=== PATIENT | female | born 1950 | race Caucasian/White ===

== ENCOUNTER 2018-05-24 15:21 | Emergency (ER) | payer MEDICARE, OTHER ==
[2018-05-24 15:48] VITALS: PULSE 94
--- NOTE | 2018-05-24 16:38 | ERPHSYRPT ---
- History of Present Illness Time Seen by Provider: 05/24/18 16:29 Source: patient Exam Limitations: no limitations Patient Subjective Stated Complaint: states has left back pain x 2 days. has had left abdominal pain x 2 weeks. has hx kidney infection. denies urinary symptoms. has had low grade temp. Triage Nursing Assessment: alert and oriented.. states pain in left back area x 2 days.. has had left abdominal pain that has improved x 2 weeks. denies urinary symptoms.. nausea without vomiting. has had low grade temp today. Physician History: 68-year-old white female arrives with complaint of left the flank pain for 2 days she states that the pain is like an aching. She states she had had some abdominal pain for approximately 2 weeks prior to that. Patient is not having nausea no vomiting no urinary symptoms. She has had a fever. Past medical history includes asthma, bronchitis, GERD, hernia, hemorrhoids, breast cancer Past surgical history includes lumpectomy, tonsils, Timing/Duration: day(s) (2 days) Severity: moderate Associated Symptoms: abdominal pain (abdominal pain for 2 wee), other (left flank pain), No nausea, No vomiting, No shortness of breath, No heartburn, No diaphoresis, No cough, No chills, No chest pain, No fever, No headaches, No loss of appetite, No malaise, No rash, No syncope, No seizure, No weakness Allergies/Adverse Reactions: loracarbef [From Lorabid] Allergy (Unknown, Verified 05/24/18 15:49) Sulfa (Sulfonamide Antibiotics) Allergy (Unknown, Verified 05/24/18 15:49) Home Medications: Albuterol 2.5 mg/3 ml Neb [Proventil 2.5 mg/3 ml Neb] 2.5 mg IH QID [History] Albuterol 8 gm Mdi Hfa [Ventolin Hfa MDI] 8 gm IH Q4H PRN PRN 11/13/13 [ History] Cetirizine HCl [Zyrtec] 10 mg PO DAILY 11/13/13 [History] Multivitamin [Multi-Vitamin Daily] 1 each PO DAILY 11/13/13 [History] PANTOPRAZOLE 40 mg Tablet [Protonix 40MG Tablet] 40 mg PO DAILY 11/13/13 [ History] Zafirlukast 20 mg [Accolate 20 mg] 20 mg PO BID 11/13/13 [History] Ciprofloxacin [Cipro 500 MG] 500 mg PO WEEKLY 05/24/18 [History] Hx Influenza Vaccination/Date Given: Yes Hx Pneumococcal Vaccination/Date Given: Yes - Review of Systems Constitutional: Fever, No Chills, No Fatigue, No Lethargy, No Night Sweats, No Weakness, No Weight Loss, No Other Eyes: No Symptoms Ears, Nose, & Throat: No Symptoms Respiratory: No Cough, No Dyspnea Cardiac: No No Symptoms, No Chest Pain, No Edema, No Syncope Abdominal/Gastrointestinal: Abdominal Pain (7 abdominal pain for 2 weeks, ), No Nausea, No Vomiting, No Constipation, No Hematemesis, No Hematochezia, No Melena , No Dysphagia, No Appetite Changes Genitourinary Symptoms: Flank Pain (left flank pain), No Dysuria, No Frequency, No Hematuria, No Hesitancy, No Incontinence, No Urgency, No Urinary Retention, No Menorrhagia, No , No Vaginal Bleeding, No Vaginal Discharge Musculoskeletal: Back Pain (left flank pain), No Neck Pain Skin: No Rash Neurological: No Dizziness, No Focal Weakness, No Sensory Changes Psychological: No Symptoms Endocrine: No Symptoms All Other Systems: Reviewed and Negative - Past Medical History Pertinent Past Medical History: Yes Neurological History: No Pertinent History ENT History: No Pertinent History Cardiac History: No Pertinent History Respiratory History: Asthma, Bronchitis Endocrine Medical History: No Pertinent History Musculoskeletal History: No Pertinent History GI Medical History: GERD, Hemorrhoids, Hernia History: No Pertinent History Psycho-Social History: No Pertinent History Female Reproductive Disorders: Breast Cancer Other Medical History: osteopenia - Past Surgical History Past Surgical History: Yes Neuro Surgical History: No Pertinent History Cardiac: No Pertinent History Respiratory: No Pertinent History Gastrointestinal: No Pertinent History Genitourinary: No Pertinent History Musculoskeletal: No Pertinent History Female Surgical History: Lumpectomy, Tubal Ligation Other Surgical History: carpal tunnel bilat tonsils out, rt partial mastectomy with lymph nodes removed,port placed and removed - Social History Smoking Status: Never smoker Exposure to second hand smoke: No Drug Use: none Patient Lives Alone: No - Female History Hx Now: No - Nursing Vital Signs Nursing Vital Signs: Initial Vital Signs Temperature 99 F 05/24/18 15:40 Pulse Rate 94 H 05/24/18 15:40 Respiratory Rate 18 05/24/18 15:40 Blood Pressure 128/92 05/24/18 15:40 O2 Sat by Pulse Oximetry 100 05/24/18 15:40 Pain Scale Pain Intensity 3 - Physical Exam General Appearance: no apparent distress, alert Eye Exam: PERRL/EOMI, eyes nml inspection Ears, Nose, Throat Exam: normal ENT inspection, TMs normal, pharynx normal, moist mucous membranes Neck Exam: normal inspection, non-tender, supple, full range of motion Respiratory Exam: normal breath sounds, lungs clear, No respiratory distress Cardiovascular Exam: regular rate/rhythm, normal heart sounds, normal peripheral pulses Gastrointestinal/Abdomen Exam: soft, normal bowel sounds, No tenderness, No mass Back Exam: normal range of motion, CVA tenderness (left flank tenderness), No vertebral tenderness, No rash, No decreased range of motion, No muscle spasm, No point tenderness Extremity Exam: normal inspection, normal range of motion, pelvis stable Neurologic Exam: alert, oriented x 3, cooperative, 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, normal mood/affect, nml cerebellar function, nml station & gait, sensation nml, No motor deficits Skin Exam: normal color, warm, dry, No rash SpO2 Interpretation: normal (100%) SpO2: 100 Oxygen Delivery: Room Air Ordered Tests: Active Orders 24 hr Category Date Time Status CBC W DIFF Stat Lab 05/24/18 16:57 Completed CMP Stat Lab 05/24/18 16:57 Completed Manual Differential NC Stat Lab 05/24/18 16:57 Completed UA W/RFX UR CULTURE Stat Lab 05/24/18 16:34 Completed Lab/Rad Data: Laboratory Result Diagrams 05/24/18 16:57 05/24/18 16:57 Laboratory Results 05/24/18 05/24/18 05/24/18 Range/Units 16:57 16:57 16:34 WBC 8.0 (4.0-10.5) K/mm3 RBC 4.68 (4.1-5.4) M/mm3 Hgb 14.5 (12.0-16.0) gm/dl Hct 43.4 (35-47) % MCV 92.7 (78-100) fl MCH 31.0 (26-32) pg MCHC 33.4 (32-36) g/dl RDW 13.4 (11.5-14.0) % Plt Count 164 (150-450) K/mm3 MPV 11.3 H (6-9.5) fl Sodium 138 (137-145) mmol/L Potassium 4.0 (3.5-5.1) mmol/L Chloride 106 (98-107) mmol/L Carbon Dioxide 21 L (22-30) mmol/L Anion Gap 15.4 H (5-15) MEQ/L BUN 20 H (7-17) mg/dL Creatinine 0.70 (0.52-1.04) mg/dL Estimated GFR > 60.0 ML/MIN Glucose 115 H (74-106) mg/dL Calcium 10.2 (8.4-10.2) mg/dL Total Bilirubin 0.80 (0.2-1.3) mg/dL AST 19 (14-36) U/L ALT 22 (0-35) U/L Alkaline Phosphatase 70 (38-126) U/L Serum Total Protein 7.4 (6.3-8.2) g/dL Albumin 4.7 (3.5-5.0) g/dL Urine Color YELLOW (YELLOW) Urine Appearance SLIGHTLY CLOUDY (CLEAR) Urine pH 5.0 (5-6) Ur Specific [place] 1.030 (1.005-1.025) Urine Protein NEGATIVE (Negative) Urine Ketones NEGATIVE (NEGATIVE) Urine Blood NEGATIVE (0-5) Des/ul Urine Nitrite NEGATIVE (NEGATIVE) Urine Bilirubin NEGATIVE (NEGATIVE) Urine Urobilinogen NEGATIVE (0-1) mg/dL Ur Leukocyte Esterase TRACE (NEGATIVE) Urine WBC (Auto) 3-5 (0-5) /HPF Urine RBC (Auto) 0-2 (0-2) /HPF U Epithel Cells (Auto) RARE (FEW) /HPF Urine Bacteria (Auto) NONE (NEGATIVE) /HPF Urine Mucus (Auto) SLIGHT (NEGATIVE) /HPF Urine Culture Reflexed NO (NO) Urine Glucose NEGATIVE (NEGATIVE) mg/dL - Progress Progress: improved Progress Note: 05/24/18 17:13 68-year-old white female arrives with complaint of left flank pain for 2 days she states that she did have some left-sided abdominal pain for about 2 weeks but it had resolved. She denies any dysuria hematuria. She has no nausea or vomiting patient's urinalysis is essentially normal CBC essentially normal chemistry essentially normal. She does state that she was doing a lot of moving around and and possibly it could have pulled a muscle. Will go ahead and give patient Toradol injection 60 mg IM plan for patient to return home and take Tylenol as needed for pain and/or Advil. Patient will need to follow-up with her family doctor if symptoms persist. Return for acute distress or for severe symptoms. - Departure Time of Disposition: 17:15 Departure Disposition: Home Clinical Impression: Left flank pain Condition: Fair Critical Care Time: No Referrals: ZHEN PETER MD [Primary Care Provider] - Additional Instructions: Return home. Tylenol every 4 hours as needed for pain or Advil every 6 hours as needed for pain. Follow-up with your family doctor if symptoms no better in 48 hours or persist longer than one week. Return for acute distress or for severe symptoms.
[2018-05-24 16:53] LABS: Appearance SLIGHTLY CLOUDY (CLEAR); Bilirubin NEGATIVE (NEGATIVE); Blood NEGATIVE Ery/ul (0-5); Glucose NEGATIVE (NEGATIVE); Ketones NEGATIVE (NEGATIVE); Leukocyte Esterase TRACE (NEGATIVE); Nitrite NEGATIVE (NEGATIVE); Protein,Urine Dip NEGATIVE (Negative); Urobilinogen NEGATIVE mg/dL (0-1)
[2018-05-24 16:58] LABS: Hematocrit 43.4 % (35-47); Hemoglobin 14.5 gm/dl (12.0-16.0); Mean Cell Volume 92.7 fl (78-100); Mean Corpuscular Hgb Concent. 33.4 g/dl (32-36); Mean Platelet Volume 11.3 fl (6-9.5); Platelet Count 164 K/mm3 (150-450); Red Blood Count 4.68 M/mm3 (4.1-5.4); Red Cell Distribution Width 13.4 % (11.5-14.0)
[2018-05-24 17:10] LABS: ALBUMIN 4.7 g/dL (3.5-5.0); ALKALINE PHOSPHATASE 70 U/L (38-126); ANION GAP 15.4 MEQ/L (5-15); BLOOD UREA NITROGEN 20 mg/dL (7-17); CHLORIDE 106 mmol/L (98-107); Calcium 10.2 mg/dL (8.4-10.2); Carbon Dioxide 21 mmol/L (22-30); Glucose 115 mg/dL (74-106); SGOT/AST 19 U/L (14-36); SGPT/ALT 22 U/L (0-35); SODIUM 138 mmol/L (137-145); Total Protein 7.4 g/dL (6.3-8.2)
[2018-05-24] MEDS ORDERED: TORAdol 30 mg Injection IM ONE (17:13)
[2018-05-24 17:14] VITALS: BP 117/70
[2018-05-24 17:16] VITALS: O2SAT 100
[2018-05-24] MEDS ORDERED: TORAdol 30 mg Injection ONE (17:52)
[2018-05-24 18:20] LABS: BAND 8 % (0.0-2.0); Eosinophil 1 % (0.00-3.0); Lymphocytes 5 % (24-44); Monocyte 1 % (0.0-12.0); Neutrophils 85 % (36.0-66.0); Platelet Estimate NORMAL (NORMAL); Total Cells Counted 100
== END 2018-05-24 17:59 | disposition home or self-care (01) ==
LOC: ED 15:21
DX: R10.9 Unspecified abdominal pain (principal); M54.9 Dorsalgia, unspecified; Z79.899 Other long term (current) drug therapy
CPT/HCPCS: 36415; 80053; 81001; 85025; 96372; 99283; J1885

== ENCOUNTER 2019-08-15 08:57 | Day surgery (SDC) | payer MEDICARE, OTHER ==
--- NOTE | 2019-08-13 09:52 | HP ---
DATE OF SURGERY: 08/15/2019 ANTICIPATED PROCEDURE: Colonoscopy. HISTORY OF PRESENT ILLNESS: The patient had hot snare polypectomy back in 2013 and presents for follow up colonoscopic examination for polyps. PAST MEDICAL HISTORY: ALLERGIES: NICKEL. MEDICATIONS: ProAir, meloxicam, oxybutynin, atorvastatin, Protonix, Cipro. PAST SURGICAL HISTORY: Breast cancer. Tonsillectomy. Tubal. Port-A-Cath. SOCIAL HISTORY: Negative. FAMILY HISTORY: Negative. REVIEW OF SYSTEMS: PULMONARY: Negative. GI: Previous hot snare polypectomy. : Negative. PHYSICAL EXAMINATION: VITAL SIGNS: Normal. CHEST: Clear. COR: Regular. ABDOMEN: Satisfactory. IMPRESSION: Follow up for polyps. PLAN: Colonoscopy.
[2019-08-15] MEDS ORDERED: VERSED 5 MG/5 ML IV ONE (08:58)
[2019-08-15] MEDS ORDERED: DEMEROL 50 MG SDV IV ONE (08:58)
[2019-08-15] MEDS ORDERED: Lactated Ringers 1,000 ML IV ONE (09:29)
[2019-08-15] MEDS ORDERED: Lactated Ringers 1,000 ML IV SCH (09:30)
--- NOTE | 2019-08-15 13:30 | OP ---
SURGERY DATE/TIME: 08/15/2019 1244 PREOPERATIVE DIAGNOSIS: History of polyps. POSTOPERATIVE DIAGNOSIS: Normal except for moderate external hemorrhoids. PROCEDURE: Colonoscopy complete to cecum. SURGEON: Fransisco Dominguez M.D. ANESTHESIA: IV sedation 15 minutes monitored. COMPLICATIONS: None. CONDITION: Stable. INDICATION: The patient has history of polyps. DESCRIPTION OF PROCEDURE: Taken to endoscopy. Left lateral decubitus position. IV sedation titrated. Oximetry kept over 90%. Comfort level satisfactory. Anal digital examination satisfactory. Rectum normal. There were some moderate external hemorrhoids. Scope advanced to the cecum. Base of cecum satisfactory. Ileocecal valve satisfactory. Ascending, hepatic, transverse, splenic, descending, sigmoid, rectum, anus again noted moderate external hemorrhoids. The patient tolerated the procedure satisfactorily. Follow up in five years.
[2019-08-15 14:17] VITALS: BP 126/51; PULSE 70; O2SAT 94
== END 2019-08-15 14:10 | disposition home or self-care (01) ==
LOC: SDC 08:57
PROVIDERS: ATTEND Surgery
DX: Z09 Encounter for follow-up examination after completed treatment for conditions other than malignant neoplasm (principal); Z86.010 Personal history of colon polyps; K64.4 Residual hemorrhoidal skin tags; K64.8 Other hemorrhoids
CPT/HCPCS: 94250; J2175; J2250